=== PATIENT | female | born 2000 | race African-American/Black ===

== ENCOUNTER 2019-11-06 14:30 | Emergency (ER) | payer OTHER ==
[2019-11-06 15:08] VITALS: BP 115/73; PULSE 83; RESP 18; TEMP 98.4
[2019-11-06] MEDS ORDERED: cefTRIAXone 250 MG VIAL IM STA (15:50)
[2019-11-06] MEDS ORDERED: AZITHROMYCIN 250 MG TAB PO STA (15:50)
[2019-11-06] MEDS ORDERED: metroNIDAZOLE 500 MG TAB PO STA (15:51)
[2019-11-06 15:56] LABS: Appearance,Urine Clear (Clear); Bilirubin,Urine Negative (Negative); Blood,Urine Negative (Negative); Color,Urine Light Yellow; Glucose,Urine (UA) Negative (Negative); Ketones,Urine Negative (Negative); Leukocyte Esterase,Urine Negative (Negative); Nitrite,Urine Negative (Negative); PH, Urine 6.5 (5.0-8.0); Protein,Urine Negative (Negative); Specific Gravity,Urine 1.016 (1.001-1.035); Urobilinogen,Urine <2.0 mg/dL (<2.0)
--- NOTE | 2019-11-06 16:25 | ED ---
Female Urogenital HPI - General Chief complaint: Urogenital Stated complaint: UTI and STD TEST Time Seen by Provider: 11/06/19 15:32 Source: patient Mode of arrival: ambulatory Limitations: no limitations - History of Present Illness Initial comments: Patient is a 19-year-old female presenting to emergency Department with a chief complaint of suspected STI and vaginal discharge. Patient states she recently came back from [place] and has developed some vaginal discharge. Patient reports she has yellow/white discharge with foul odor. Patient has no history of bacterial vaginosis. Patient is also concerned for STDs. She did have unprotected sex. Denies increased urgency frequency or dysuria. Denies any night sweats fevers or chills. Denies any nausea vomiting diarrhea. Denies any back pain or abdominal pain. States there is concern for possible . - Related Data Previous Rx's Medication Instructions Recorded metroNIDAZOLE [Flagyl] 500 mg PO BID #14 tab 11/06/19 Allergies Allergy/AdvReac Type Severity Reaction Status Date / Time No Known Allergies Allergy Verified 11/06/19 15:08 Review of Systems ROS Statement: Those systems with pertinent positive or pertinent negative responses have been documented in the HPI. ROS Other: All systems not noted in ROS Statement are negative. Past Medical History Past Medical History: No Reported History History of Any Multi-Drug Resistant Organisms: None Reported Past Surgical History: No Surgical Hx Reported Past Psychological History: Bipolar Smoking Status: Current every day smoker Past Alcohol Use History: None Reported Past Drug Use History: None Reported General Exam Limitations: no limitations General appearance: alert, in no apparent distress Head exam: Present: atraumatic, normocephalic, normal inspection Eye exam: Present: normal appearance, PERRL, EOMI Pupils: Present: normal accommodation ENT exam: Present: normal exam, normal oropharynx, mucous membranes moist Neck exam: Present: normal inspection, full ROM Respiratory exam: Present: normal lung sounds bilaterally. Absent: respiratory distress, wheezes Cardiovascular Exam: Present: regular rate, normal rhythm, normal heart sounds GI/Abdominal exam: Present: soft. Absent: distended, tenderness Extremities exam: Present: normal inspection, full ROM. Absent: tenderness Back exam: Present: normal inspection, full ROM. Absent: tenderness Neurological exam: Present: alert, oriented X3 Psychiatric exam: Present: normal affect, normal mood Skin exam: Present: warm, dry, intact, normal color Course Vital Signs 11/06/19 15:04 Temperature 98.4 F Pulse Rate 83 Respiratory 18 Rate Blood Pressure 115/73 O2 Sat by Pulse 100 Oximetry Medical Decision Making - Medical Decision Making Patient is a 19-year-old female presenting to the emergency department with a chief complaint of suspected STD and vaginal discharge. Patient was offered pelvic examination, she declined. Patient would like to be treated prophylactically for any STDs. Gonorrhea and chlamydia pending. UA is unremarkable. Patient is not . Patient will be treated with Rocephin, azithromycin and Flagyl for Trichomonas. Patient also be treated for bacterial vaginosis with 7 days of Flagyl. Patient advised not to drink alcohol while taking the medication. Strict return parameters were thoroughly discussed the patient is understanding and agreeable. She was advised to follow-up with her primary care. Case discussed with physician. - Lab Data Lab Results 11/06/19 11/06/19 Range/Units 15:30 15:37 Urine Color Light Yellow Urine Appearance Clear (Clear) Urine pH 6.5 (5.0-8.0) Ur Specific [place] 1.016 (1.001-1.035) Urine Protein Negative (Negative) Urine Glucose (UA) Negative (Negative) Urine Ketones Negative (Negative) Urine Blood Negative (Negative) Urine Nitrite Negative (Negative) Urine Bilirubin Negative (Negative) Urine Urobilinogen <2.0 (<2.0) mg/dL Ur Leukocyte Esterase Negative (Negative) Urine HCG, Qual Not Detected (Not Detectd) Disposition Clinical Impression: Bacterial vaginosis, Vaginal discharge, Potential exposure to STD Disposition: HOME SELF-CARE Condition: Good Instructions (If sedation given, give patient instructions): Bacterial Vaginosis (ED) Additional Instructions: Take prescribed medication as directed. Do not drink alcohol. Return to emergency department if symptoms worsen. Prescriptions: metroNIDAZOLE [Flagyl] 500 mg PO BID #14 tab Is patient prescribed a controlled substance at d/c from ED?: No Referrals: None,Stated [Primary Care Provider] - 1-2 days Time of Disposition: 16:25
[2019-11-07 16:14] LABS: C. trachomatis,PCR Negative (Neg,Equiv); Chlamydia trachomatis Source Urine; N. gonorrhoeae,PCR Negative (Neg,Equiv); Neisseria Source Urine
== END 2019-11-06 16:31 | disposition home or self-care (01) ==
LOC: EC 14:30
DX: N76.0 Acute vaginitis (principal); F17.200 Nicotine dependence, unspecified, uncomplicated; Z20.2 Contact with and (suspected) exposure to infections with a predominantly sexual mode of transmission
CPT/HCPCS: 81003; 81025; 87491; 87591; 96372; 99283; J0696

== ENCOUNTER 2020-03-31 10:38 | Emergency (ER) | payer OTHER ==
[2020-03-31 10:44] VITALS: BP 117/72; PULSE 108; RESP 18; TEMP 99.4
--- NOTE | 2020-03-31 11:00 | ED ---
General Adult HPI - General Source: patient, RN notes reviewed Mode of arrival: ambulatory Limitations: no limitations <Stefan Metcalf - Last Filed: 03/31/20 11:46> <Shaunna Lockwood - Last Filed: 04/01/20 08:16> - General Chief complaint: Urogenital Stated complaint: STD Time Seen by Provider: 03/31/20 10:46 - History of Present Illness Initial comments: 19-year-old female without any significant past medical history presents to the emergency department for STD exposure. Patient states her partner is positive for Trichomonas. Patient unsure if he was tested for other STDs. Patient reports she has had some vaginal discharge, no abdominal pain or fevers. Patient has no other complaints at this time including shortness of breath, chest pain, abdominal pain, nausea or vomiting, headache, or visual changes. (Stefan Metcalf) - Related Data Home Medications Medication Instructions Recorded Confirmed Cholecalciferol [Vitamin D3 (25 1,000 unit PO DAILY 03/31/20 03/31/20 Mcg = 1000 Iu)] Vitamin C/Biotin [Hair, Skin and 1 tab PO DAILY 03/31/20 03/31/20 Nails] Previous Rx's Medication Instructions Recorded metroNIDAZOLE [Flagyl] 500 mg PO BID 7 Days #13 tab 03/31/20 Allergies Allergy/AdvReac Type Severity Reaction Status Date / Time No Known Allergies Allergy Verified 03/31/20 11:20 Review of Systems ROS Other: All systems not noted in ROS Statement are negative. <Stefan Metcalf - Last Filed: 03/31/20 11:46> ROS Other: All systems not noted in ROS Statement are negative. <Shaunna Lockwood - Last Filed: 04/01/20 08:16> ROS Statement: Those systems with pertinent positive or pertinent negative responses have been documented in the HPI. Past Medical History Past Medical History: No Reported History History of Any Multi-Drug Resistant Organisms: None Reported Past Surgical History: No Surgical Hx Reported Past Psychological History: Bipolar Smoking Status: Never smoker Past Alcohol Use History: None Reported Past Drug Use History: Marijuana <Stefan Metcalf - Last Filed: 03/31/20 11:46> General Exam Limitations: no limitations General appearance: alert, in no apparent distress Head exam: Present: atraumatic, normocephalic, normal inspection Eye exam: Present: normal appearance, PERRL, EOMI. Absent: scleral icterus, conjunctival injection, periorbital swelling ENT exam: Present: normal exam, mucous membranes moist Neck exam: Present: normal inspection, full ROM. Absent: tenderness, meningismus, lymphadenopathy Respiratory exam: Present: normal lung sounds bilaterally. Absent: respiratory distress, wheezes, rales, rhonchi, stridor Cardiovascular Exam: Present: regular rate, normal rhythm, normal heart sounds. Absent: systolic murmur, diastolic murmur, rubs, gallop, clicks GI/Abdominal exam: Present: soft, normal bowel sounds. Absent: distended, tenderness, guarding, rebound, rigid External exam: Present: normal external exam. Absent: erythema, swelling, lesions, lacerations, ecchymosis Speculum exam: Present: vaginal discharge (greyish discharge). Absent: normal speculum exam, erythema, cervical discharge, vaginal bleeding, foreign body, tissue By manual exam: Present: normal by manual exam. Absent: cervical motion tenderness, adnexal tenderness, adnexal mass, uterine enlargement, uterine tenderness <Stefan Metcalf P - Last Filed: 03/31/20 11:46> Course Vital Signs 03/31/20 10:42 Temperature 99.4 F Pulse Rate 108 H Respiratory 18 Rate Blood Pressure 117/72 O2 Sat by Pulse 100 Oximetry Medical Decision Making <Stefan Metcalf P - Last Filed: 03/31/20 11:46> <Shaunna Lockwood A - Last Filed: 04/01/20 08:16> - Medical Decision Making Vitals are stable. Patient slightly tachycardic likely secondary to anxiety as she is very anxious. Pelvic exam was performed and there is vaginal discharge however no cervical motion tenderness or evidence of pelvic inflammatory disease. Urinalysis is negative. HCG is not detected. Trichomonas is actually negative today. However given exposure and symptoms consistent with Trichomonas such as foul-smelling grayish discharge patient will be treated over a 7 day course which will also treat BV if that is a factor. She is also requesting empiric treatment for gonorrhea and chlamydia. Unsure patient's partner was tested for this. At this time patient will be discharged home to follow up with primary care. However she starts to develop pelvic pain fevers or any worsening symptoms she will return to the emergency room. (Stefan Metcalf) I was available for consultation in the emergency department. The history and physical exam were done by the midlevel provider. I was consulted for this patients care. I reviewed the case with the midlevel provider and based on their presentation of the patient, I agree with the assessment, medical decision making and plan of care as documented. Chart was dictated using [employer] dictation software. Attempts were made to correct any dictation errors however some typographical errors may persist. Patient was seen during state of emergency due to Covid-19. (Shaunna Lockwood) - Lab Data Lab Results 03/31/20 03/31/20 03/31/20 Range/Units 10:58 10:58 11:12 Urine Color Yellow Urine Appearance Clear (Clear) Urine pH 7.0 (5.0-8.0) Ur Specific [place] 1.014 (1.001-1.035) Urine Protein Negative (Negative) Urine Glucose (UA) Negative (Negative) Urine Ketones Negative (Negative) Urine Blood Negative (Negative) Urine Nitrite Negative (Negative) Urine Bilirubin Negative (Negative) Urine Urobilinogen <2.0 (<2.0) mg/dL Ur Leukocyte Esterase Negative (Negative) Urine HCG, Qual Not Detected (Not Detectd) Trichomonas Ag (Rapid) Negative (Negative) Disposition Is patient prescribed a controlled substance at d/c from ED?: No Time of Disposition: 11:47 <Stefan Metcalf - Last Filed: 03/31/20 11:46> <Shaunna Lockwood - Last Filed: 04/01/20 08:16> Clinical Impression: STD exposure Disposition: HOME SELF-CARE Condition: Good Instructions (If sedation given, give patient instructions): Sexually Transmitted Diseases (ED) Additional Instructions: Please take medication as directed. You were given a dose this morning and should take another dose tonight. You cannot drink alcohol on the days to take this medication. Do not have sexual intercourse until all results are back and symptoms have resolved. Follow-up with your doctor in one to 2 days. Return to the emergency room for any worsening symptoms. Prescriptions: metroNIDAZOLE [Flagyl] 500 mg PO BID 7 Days #13 tab Referrals: Urban Bello MD [REFERRING] - 1-2 days
[2020-03-31 11:11] LABS: Appearance,Urine Clear (Clear); Bilirubin,Urine Negative (Negative); Blood,Urine Negative (Negative); Color,Urine Yellow; Glucose,Urine (UA) Negative (Negative); Ketones,Urine Negative (Negative); Leukocyte Esterase,Urine Negative (Negative); Nitrite,Urine Negative (Negative); Protein,Urine Negative (Negative); Specific Gravity,Urine 1.014 (1.001-1.035); Urobilinogen,Urine <2.0 mg/dL (<2.0)
[2020-03-31] MEDS ORDERED: cefTRIAXone 250 MG VIAL IM STA (11:14)
[2020-03-31] MEDS ORDERED: metroNIDAZOLE 500 MG TAB PO STA ×2 (11:14→11:32)
[2020-03-31] MEDS ORDERED: AZITHROMYCIN 500 MG TAB PO STA (11:14)
[2020-04-01 14:08] LABS: C. trachomatis,PCR Negative (Neg,Equiv); Chlamydia trachomatis Source Vagina; N. gonorrhoeae,PCR Negative (Neg,Equiv); Neisseria Source Vagina
== END 2020-03-31 11:58 | disposition home or self-care (01) ==
LOC: EC 10:38
DX: Z20.2 Contact with and (suspected) exposure to infections with a predominantly sexual mode of transmission (principal); R00.0 Tachycardia, unspecified; N89.8 Other specified noninflammatory disorders of vagina
CPT/HCPCS: 81003; 81025; 87808; 87491; 87591; 99283; 96372; J0696

== ENCOUNTER → 2023-03-27 | Outpatient (CLI) | payer OTHER ==
[2023-03-27 14:49] VITALS: BP 145/67; PULSE 115; RESP 15; TEMP 98.7
--- NOTE | 2023-03-27 15:07 | P.PAINPG ---
Objective - Vital Signs Vital signs: Intake & Output 03/26/23 03/27/23 03/27/23 18:59 06:59 18:59 Weight 90.718 kg PQRS Measure Charge Sheet Comment: HISTORY OF PRESENT ILLNESS: A 22 yr old female w mother and fiance at side as a referral from Dr Elmore presents today w severe and chronic upper back pain secondary to post laminectomy syndrome for evaluation. Pt states pain level is provoked at 8/10 in intensity, constant, localized in the upper thoracic spine, predominantly axial, achy in character w shooting pain towards the BL ribs. Pain is provoked by movement. Pain is alleviated by PT x 4 mo which ended in Feb 2023, heat, medications (Percocet, [place], Neurontin, Lidocaine, Naproxen), topical, use of a wheelchair for ambulatory assistance, repositioning and rest. Pt states she is a paraplegic, but pt was witnessed by MA standing up from her wheelchair to adjust her clothing then sit back down. Pt states she doesn't want to follow up w her orthopedic surgeon as she complains the hardware in her thoracic spine is "loose" because she doesn't like him and has a follow up appt w another orthopedic surgeon in May 2023. She does not want to see her original orthopedic surgeon, at all, even for an opinion. Oswestry axial pain score at 38. PMH: OA, Bipolar Disorder PSH: Thoracic laminectomy w hardware placement SH: No tobacco use, No ETOH abuse, Cannabis use FH: Non contributory All: See list Meds: See list REVIEW OF ORGAN SYSTEMS: CONSTITUTIONAL: No fevers or chills. No recent weight loss. NEUROLOGICAL: + numbness and tingling along the distal extremities. No seizure disorders or headaches. MUSCULOSKELETAL: + pain PSYCHIATRIC: Denies current depression or suicidal thoughts. Physical Examinations : Constitutional : Cooperative , not in acute distress . Neurologic : Cranial nerve II to XII intact. No focal neurological deficits. Psychiatric : alert & oriented x 3. Matching mood & appropriate affect. Judgment & insight intact. Musculoskeletal : Cervical Spine Motor strength in the deltoid and biceps: Normal right side. Normal Left side Motor strength biceps and the wrist extensors: Normal right side . Normal left side Motor strength in the triceps muscle: Normal right side. Normal left side Deep tendon reflexes: Normal at the biceps. Normal at Brachioradialis. Normal at triceps Vertebral body tenderness to deep palpation over Cervical facet loading test: positive bilaterally Spurling test: positive bilaterally Neck distraction test: positive bilaterally Jaimee sign: positive bilaterally Lumbar spine Motor strength lower extremities ,thigh and legs 5/5 Right side , 5/5 Left side Deep tendon reflexes : Normal Knee Jerk. Normal Ankle Jerk Vertebral body tenderness over Parekh Test positive Lumbar facet Loading Test: positive Right / positive Left Range of motion of the lumbar spine Flexion 30 degrees, extension 10 degrees Straight Leg Raise test: Left/ Right positive at degree Brad test: positive right / positive left. Severe tenderness over the Sacroiliac joint on the Right / Left sides Gaenslen test: positive bilaterally Seated flexion test: positive bilaterally. Sacral spine : Severe tenderness over the Sacroiliac joint: right side / left side Range of motion: Flexion of the lumbar spine <60 degrees Range of motion: Extension of the lumbar spine <20 degrees Gaenslen's Test positive Brad test: positive right side / l eft side Thigh Thrust Test Sacral Thrust Test Imaging: None on file Assessment/ Plan : Thoracic post laminectomy syndrome Recommendation of ELZBIETA form to obtain records. All questions answered. I have spent greater than 30 minutes on patient care today. Dr Hammer was available by phone for the evaluation of this patient. The time was used to review the medical records including relevant urine studies and Prescription history (MAPs), review of the available imaging, evaluation and examination of the patient, coordination of care with the medical staff and if applicable referring physicians, as well as creation of the medical record PQRS Narrative: Smoking Status Current every day smoker Home Medications: Ambulatory Orders Cholecalciferol [Vitamin D3 (25 Mcg = 1000 Iu)] 1,000 unit PO DAILY 03/31/20 Vitamin C/Biotin [Hair, Skin and Nails] 1 tab PO DAILY 03/31/20 metroNIDAZOLE [Flagyl] 500 mg PO BID 7 Days #13 tab 03/31/20 Controlled Substance Measures - Controlled Substance Measures Is patient prescribed a controlled substance at discharge?: No
== END ==
LOC: PNWHC3 13:35
PROVIDERS: ATTEND Specialist
DX: M96.1 Postlaminectomy syndrome, not elsewhere classified (principal); G89.29 Other chronic pain; F17.200 Nicotine dependence, unspecified, uncomplicated; M19.90 Unspecified osteoarthritis, unspecified site; F31.9 Bipolar disorder, unspecified; Z87.828 Personal history of other (healed) physical injury and trauma
CPT/HCPCS: 99211

== ENCOUNTER → 2024-02-28 | Outpatient (CLI) | payer OTHER ==
--- NOTE | 2024-02-28 19:40 | CT ---
EXAMINATION TYPE: CT thor lumbar spine wo con CT DLP: 1894 mGycm, Automated exposure control for dose reduction was used. DATE OF EXAM: 02/28/2024 3:34 PM CLINICAL INDICATION: Female, 23 years old with history of S24.101 M54.6 M96.1 R25.2 M54.50; chronic b ack pain COMPARISON: none TECHNIQUE: Axial images of the thoracic and lumbar spine were obtained without contrast. Coronal and sagittal reformats were performed. CT Contrast: Contrast used: mL of , none. Oral contrast used: none. FINDINGS: Thoracic: Multilevel degeneration changes throughout the spine are mild. There is severe degeneration changes n ear the level of fixation hardware at T6 T7 with severe endplate sclerosis and disc space narrowing. Hardware extends from T2 to T6. Lucency around the T5 and T6 pedicle screws may be present streak art ifact limits evaluation. Series 12 image 34 and series 7 image 25 and 28. Endplate Schmorl's nodes ar e also present at T6-T7, T7-T8 and T8-T9. No evidence for significant spinal canal neural foraminal s tenosis within the thoracic spine. Laminectomy changes are also noted around T4. Lumbar: Alignment: There are 5 lumbar type vertebral bodies within normal alignment. Bone: No evidence of fracture is identified. Discs: T12-L1: No spinal canal or neural foraminal stenosis is identified. L1-L2: No spinal canal or neural foraminal stenosis is identified. L2-L3: No spinal canal or neural foraminal stenosis is identified. L3-L4: No spinal canal or neural foraminal stenosis is identified. L4-L5: No spinal canal or neural foraminal stenosis is identified. L5-S1: No spinal canal or neural foraminal stenosis is identified. Other: None IMPRESSION: 1. Surgical changes with hardware at T2-T6 with sparing of T4. There is lucency around the pedicle s crews bilaterally at T5 and definitely at T6 concerning for loosening. 2. Degeneration changes spine worse at the inferior aspect of the fixation levels worse at T6-T7, T7 -T8 and T8-T9 3. No evidence for spinal fracture. 4. No evidence for significant spinal canal stenosis. [facility], , 02/28/2024 7:38 PM
== END ==
LOC: RADCTMAIN 14:21
PROVIDERS: ATTEND Physical Medicine & Rehabilitation Pain Medicine
CPT/HCPCS: 72128; 72131

== ENCOUNTER 2024-04-12 17:24 | Inpatient (IN) | payer OTHER ==
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
[2024-04-12] MEDS: ACETAMINOPHEN TAB 500 MG TAB PO STA (19:44)
[2024-04-12] MEDS: KETOROLAC 15 MG/ML 1 ML VIAL IVP STA (19:49)
[2024-04-12] MEDS: KETOROLAC 15 MG/ML 1 ML VIAL IM STA (19:49)
[2024-04-12 20:58] LABS: ALT 14 U/L (4-34); AST 20 U/L (14-36); African American GFR (CKD) >90 (>60 ml/min/1.73 sqM); Albumin 3.7 g/dL (3.5-5.0); Alkaline Phosphatase 89 U/L (38-126); Anion Gap 8 mmol/L; Blood Urea Nitrogen 13 mg/dL (7-17); Calcium 8.5 mg/dL (8.4-10.2); Carbon Dioxide 19 mmol/L (22-30); Chloride 104 mmol/L (98-107); Glucose 112 mg/dL (74-99); Non-African American GFR(CKD) >90 (>60 ml/min/1.73 sqM); Potassium 3.6 mmol/L (3.5-5.1); Sodium 131 mmol/L (137-145); Total Bilirubin 0.5 mg/dL (0.2-1.3); Total Protein 6.9 g/dL (6.3-8.2)
[2024-04-12 21:04] LABS: Basophils % (A) 0 %; Eosinophils # (A) 0.1 k/uL (0-0.7); Eosinophils % (A) 1 %; HCT 34.9 % (34.0-46.0); HGB 11.5 gm/dL (11.4-16.0); Lymphocytes # (A) 1.2 k/uL (1.0-4.8); Lymphocytes % (A) 9 %; MCH 30.8 pg (25.0-35.0); MCHC 33.1 g/dL (31.0-37.0); MCV 93.2 fL (80.0-100.0); Mean Platelet Volume 8.5; Monocytes % (A) 8 %; Neutrophils # (A) 10.8 k/uL (1.3-7.7); Neutrophils % (A) 81 %; Platelet Count 265 k/uL (150-450); RBC 3.75 m/uL (3.80-5.40); RDW 12.6 % (11.5-15.5); WBC 13.4 k/uL (3.8-10.6)
--- NOTE | 2024-04-12 21:20 | XR ---
EXAMINATION TYPE: XR thoracic spine 3 views complete DATE OF EXAM: 04/12/2024 9:06 PM COMPARISON: None CLINICAL INDICATION: Female, 23 years old with history of previous surgery, pain, , FINDINGS: Posterior thoracic fusion hardware spanning approximately 5 levels in the upper thoracic spine. Mild to moderate degenerative disc disease mid thoracic spine below the fusion. Slight accentuated upper t horacic kyphosis. Otherwise, vertebral body heights appear to be grossly maintained and alignment is preserved. IMPRESSION: Posterior thoracic fusion hardware spanning approximately 5 levels. Accentuated upper thoracic kyphos is and mild to moderate degenerative disc disease mid thoracic spine below the fusion. No evident cuate tebral compression collapse or malalignment. [facility], , 04/12/2024 9:17 PM
[2024-04-12 21:40] LABS: C Reactive Protein 26.4 mg/dL (<1.0)
[2024-04-12] MEDS ORDERED: VANCOMYCIN IV PER PHARMACY 1 EACH MISC MISCELLANE PRN (22:25)
[2024-04-12] MEDS ORDERED: IBUPROFEN 400 MG TAB PO PRN (22:26)
[2024-04-12] MEDS ORDERED: NALOXONE 0.4 MG/ML 1 ML VIAL IV PRN (22:26)
[2024-04-12] MEDS: VANCOMYCIN 1,500 MG in SODIUM CHLORIDE 0.9% 500 ML 500 ML IVPB SCH (23:20)
[2024-04-12] MEDS: SODIUM CHLORIDE 0.9% 1,000 ML IV SCH (23:20)
[2024-04-13] MEDS: KETOROLAC 15 MG/ML 1 ML VIAL IVP PRN (06:09)
[2024-04-13 06:51] LABS: Basophils # (A) 0.1 k/uL (0-0.2); Basophils % (A) 1 %; Eosinophils # (A) 0.1 k/uL (0-0.7); Eosinophils % (A) 1 %; HCT 36.7 % (34.0-46.0); HGB 11.5 gm/dL (11.4-16.0); Hypochromasia Slight; Lymphocytes # (A) 1.6 k/uL (1.0-4.8); Lymphocytes % (A) 15 %; MCH 30.5 pg (25.0-35.0); MCHC 31.3 g/dL (31.0-37.0); MCV 97.6 fL (80.0-100.0); Monocytes # (A) 1.2 k/uL (0-1.0); Monocytes % (A) 11 %; Neutrophils # (A) 7.5 k/uL (1.3-7.7); Neutrophils % (A) 70 %; Platelet Count 257 k/uL (150-450); RBC 3.76 m/uL (3.80-5.40); RDW 12.4 % (11.5-15.5); WBC 10.7 k/uL (3.8-10.6)
[2024-04-13 06:57] LABS: ALT 14 U/L (4-34); AST 18 U/L (14-36); African American GFR (CKD) >90 (>60 ml/min/1.73 sqM); Albumin 3.6 g/dL (3.5-5.0); Alkaline Phosphatase 96 U/L (38-126); Anion Gap 10 mmol/L; Blood Urea Nitrogen 15 mg/dL (7-17); Calcium 8.7 mg/dL (8.4-10.2); Carbon Dioxide 23 mmol/L (22-30); Chloride 104 mmol/L (98-107); Glucose 145 mg/dL (74-99); Non-African American GFR(CKD) >90 (>60 ml/min/1.73 sqM); Potassium 3.6 mmol/L (3.5-5.1); Sodium 137 mmol/L (137-145); Total Bilirubin 0.2 mg/dL (0.2-1.3); Total Protein 6.7 g/dL (6.3-8.2)
[2024-04-13] MEDS: MORPHINE SULFATE 4 MG/ML SYRINGE IV PRN (11:29)
--- NOTE | 2024-04-13 12:29 | XR ---
EXAMINATION TYPE: XR chest 2V DATE OF EXAM: 04/13/2024 11:55 AM COMPARISON: None CLINICAL INDICATION: Female, 23 years old with history of fever, sepsis; [facility] TECHNIQUE: XR chest 2V Frontal and lateral views of the chest. FINDINGS: Lungs/Pleura: There is no evidence of pleural effusion, focal consolidation, or pneumothorax. Pulmonary vascularity: Unremarkable. Heart/mediastinum: Cardiomediastinal silhouette is unremarkable. Musculoskeletal: No acute osseous pathology. Postsurgical changes to the spine. Hardware appears inta ct. IMPRESSION: No acute cardiopulmonary disease/process. [facility], , 04/13/2024 12:27 PM
--- NOTE | 2024-04-13 12:30 | XR ---
EXAMINATION TYPE: XR abdomen 2V DATE OF EXAM: 04/13/2024 11:55 AM COMPARISON: None CLINICAL INDICATION: Female, 23 years old with history of constipation; distention, pain TECHNIQUE: Two views of the abdomen were obtained. FINDINGS: Large amount stool throughout the colon. The bowel gas pattern is nonspecific without dilat ed loops of small or large bowel. There is no evidence for organomegaly or pneumoperitoneum. The oss eous structures are intact. No abnormal calcifications are present. Fecal material and gas are demon strated throughout the colon and rectum. IMPRESSION: Large stool burden throughout the colon. [facility], , 04/13/2024 12:28 PM
[2024-04-13] MEDS: LACTULOSE 20 GM/30 ML CUP PO SCH (13:31)
[2024-04-13] MEDS: ONDANSETRON 4 MG/2 ML VIAL IVP PRN (13:54)
[2024-04-13 15:00] LABS: Appearance,Urine Clear (Clear); Bilirubin,Urine Negative (Negative); Blood,Urine Trace (Negative); Color,Urine Colorless; Glucose,Urine (UA) Negative (Negative); Ketones,Urine Negative (Negative); Leukocyte Esterase,Urine Negative (Negative); Nitrite,Urine Negative (Negative); Protein,Urine Negative (Negative); Specific Gravity,Urine 1.003 (1.001-1.035); Squamous Epithelial Cell,Urine 2 /hpf (0-4); Urobilinogen,Urine <2.0 mg/dL (<2.0); WBC,Urine <1 /hpf (0-5)
[2024-04-13] MEDS: NA PHOS,M-B/NA PHOS,DI-BA 133 ML ENEMA RECTAL ONE (15:59)
[2024-04-13] MEDS ORDERED: oxyCODONE-APAP 7.5-325MG 1 EACH TAB PO PRN (19:17)
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
[2024-04-13] MEDS: ENOXAPARIN 40 MG/0.4 ML SYRINGE SQ SCH (20:19)
[2024-04-13] MEDS: oxyBUTYnin chloride 5 MG TAB PO SCH (20:20)
[2024-04-13] MEDS: traZODone HCL 50 MG TAB PO SCH (20:20)
[2024-04-13] MEDS: QUEtiapine 50 MG TAB PO SCH (20:20)
[2024-04-13] MEDS: PREGABALIN 75 MG CAP PO SCH (20:20)
[2024-04-13] MEDS: MONTELUKAST 10 MG TAB PO SCH (20:20)
[2024-04-13] MEDS: DANTROLENE SODIUM 50 MG PO SCH (20:29)
[2024-04-13] MEDS: BACLOFEN 10 MG TAB PO PRN (20:54)
[2024-04-14] MEDS: VANCOMYCIN 1,500 MG in SODIUM CHLORIDE 0.9% 500 ML 500 ML IVPB SCH (01:15)
[2024-04-14] MEDS ORDERED: VANCOMYCIN TROUGH DUE 1 EACH MISC MISCELLANE ONE (06:00)
[2024-04-14 06:07] LABS: Eosinophils % (A) 1 %; HCT 35.6 % (34.0-46.0); HGB 11.5 gm/dL (11.4-16.0); Lymphocytes % (A) 10 %; MCH 31.1 pg (25.0-35.0); MCHC 32.2 g/dL (31.0-37.0); MCV 96.4 fL (80.0-100.0); Mean Platelet Volume 10.1; Monocytes % (A) 10 %; Neutrophils % (A) 77 %; Platelet Count 229 k/uL (150-450); RBC 3.69 m/uL (3.80-5.40); RDW 12.6 % (11.5-15.5); WBC 14.6 k/uL (3.8-10.6)
[2024-04-14 06:08] LABS: Basophils # (A) 0.1 k/uL (0-0.2); Basophils % (A) 0 %; Eosinophils # (A) 0.2 k/uL (0-0.7); Lymphocytes # (A) 1.5 k/uL (1.0-4.8); Monocytes # (A) 1.5 k/uL (0-1.0); Neutrophils # (A) 11.2 k/uL (1.3-7.7)
[2024-04-14] MEDS: PANTOPRAZOLE 40 MG TABLET PO SCH (06:11)
[2024-04-14 06:37] LABS: African American GFR (CKD) >90 (>60 ml/min/1.73 sqM); Anion Gap 8 mmol/L; Blood Urea Nitrogen 9 mg/dL (7-17); Calcium 8.3 mg/dL (8.4-10.2); Carbon Dioxide 17 mmol/L (22-30); Chloride 112 mmol/L (98-107); Glucose 108 mg/dL (74-99); Non-African American GFR(CKD) >90 (>60 ml/min/1.73 sqM); Sodium 137 mmol/L (137-145)
[2024-04-14 06:39] LABS: Magnesium 1.9 mg/dL (1.6-2.3); Potassium 4.6 mmol/L (3.5-5.1)
--- NOTE | 2024-04-14 09:11 | NM ---
EXAMINATION TYPE: NM pul vent and perfuse DATE OF EXAM: 04/14/2024 CLINICAL INDICATION: Female, 23 years old with history of Rule out PE; COMPARISON: NONE TECHNIQUE: Utilizing inhalation of 41 mCi Tc 99m DTPA aerosol and intravenous injection of 5.3 mCi o f Tc 99m MAA, ventilation and perfusion images are acquired post injection in multiple projections. FINDINGS: There are a few small subsegmental ventilation and perfusion matches. IMPRESSION: Low to indeterminate for pulmonary embolus. [facility], Workstation: [email or web address] 04/14/2024 9:09 AM
[2024-04-14] MEDS: ESCITALOPRAM 20 MG TAB PO SCH (09:25)
[2024-04-14] MEDS: SENNOSIDES 8.6 MG TAB PO SCH (09:25)
[2024-04-14] MEDS: LORATADINE 10 MG TAB PO SCH (09:25)
[2024-04-14] MEDS: DOCUSATE 100 MG CAP PO SCH (09:25)
[2024-04-14] MEDS ORDERED: BARIUM SULFATE 2% - 450 ML ORAL.SUSP BOTTLE PO PRN (09:30)
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
--- NOTE | 2024-04-14 11:00 | US ---
EXAMINATION TYPE: US venous doppler duplex LE DATE OF EXAM: 04/13/2024 10:21 PM Exam done portable COMPARISON: NONE CLINICAL INDICATION: Female, 23 years old with history of Rule out PE; , TECHNIQUE: The lower extremity deep venous system is examined utilizing real time linear array sonog radha with graded compression, color doppler sonography, and spectral doppler. SIDE PERFORMED: Bilateral FINDINGS: VESSELS IMAGED: Common Femoral Vein Deep Femoral Vein Greater Saphenous Vein * Femoral Vein Popliteal Vein Small Saphenous Vein * Proximal Calf Veins (* superficial vessels) The deep venous systems of both lower extremities from the common femoral remains to the proximal rufino f veins are patent and compressible with augmentable flow and with normal waveforms. IMPRESSION: No evidence of bilateral lower extremity DVT from the common femoral veins to the proximal calf veins [facility], Workstation: [email or web address] 04/14/2024 10:57 AM
[2024-04-14] MEDS: BARIUM SULFATE 2% - 450 ML ORAL.SUSP BOTTLE PO PRN (11:46)
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
[2024-04-14] MEDS: FAMOTIDINE 20 MG/2 ML VIAL IV ONE (14:48)
[2024-04-14] MEDS: diphenhydrAMINE 50 MG/ML 1 ML VIAL IVP ONE (14:56)
[2024-04-14] MEDS: methylPREDNISolone SOD SUCCI 125 MG/2 ML VIAL IV ONE (14:58)
[2024-04-14] MEDS: ACETAMINOPHEN TAB 325 MG TAB PO PRN (15:05)
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
--- NOTE | 2024-04-14 17:03 | CT ---
EXAMINATION TYPE: CT ChestAbdPelvis wo/w con DATE OF EXAM: 04/14/2024 4:34 PM COMPARISON: None available. CLINICAL INDICATION: Female, 23 years old with history of Sepsis and rule out PE.; PHH, Sepsis and ru le out PE. Technique: CT ChestAbdPelvis wo/w con; Multiple axial images were obtained. Two-dimensional coronal a nd sagittal reconstructions were obtained. Contrast used:100 mL of Isovue 300 without and with IV Contrast, (None if empty) Oral contrast used: with Oral Contrast CT DLP: 2853.9 mGycm, Automated exposure control for dose reduction was used. Findings: CHEST: LUNGS/ PLEURA: Small left pleural effusion with adjacent consolidative changes which could reflect at electasis and/or pneumonia. AIRWAY: Patent and unremarkable. HEART: Size within normal limits. MEDIASTINUM: No gross evidence of adenopathy. VASCULATURE: No evidence of thoracic aortic aneurysm or focal dissection within the limitations of mo tion artifact. No definite acute pulmonary embolism. However, evaluation of the distal segmental and some segmental pulmonary branches is significantly limited due to suboptimal timing contrast bolus an d motion artifact. MUSCULOSKELETAL: No acute osseous abnormalities. Multilevel posterior spinal fusion hardware. Thoraci c spine degenerative changes. Likely old fracture deformity of the sternomanubrial junction SOFT TISSUES/LYMPH NODES: Unremarkable. LOWER NECK: No significant findings. ABDOMEN: ABDOMEN LIVER: Unremarkable GALLBLADDER AND BILE DUCTS: Unremarkable. PANCREAS: Unremarkable. SPLEEN: Unremarkable. ADRENAL GLANDS: Unremarkable. KIDNEYS AND URETERS: No evidence of hydronephrosis or renal calculus. The ureters are unremarkable. PELVIS BLADDER: Paiz catheter within a nondistended urinary bladder with cystic and nondependent gas. REPRODUCTIVE: Unremarkable. ABDOMEN & PELVIS STOMACH AND BOWEL: Stomach and duodenum are unremarkable No evidence of bowel obstruction. PERITONEUM/RETROPERITONEUM: No evidence of pneumoperitoneum or free fluid. VASCULATURE: No evidence of aortic aneurysm. MUSCULOSKELETAL: No acute osseous abnormalities LYMPH NODES: No gross evidence for lymphadenopathy. SOFT TISSUE/ABDOMINAL WALL: Unremarkable IMPRESSION: Chest: * No evidence of acute pulmonary embolism within the limitations described above. * Small left pleural effusion with adjacent lower lobe consolidative changes which could reflect ate lectasis and/or pneumonia. CT abdomen/pelvis: * No acute abnormality identified. [facility], Workstation: [id number], 04/14/2024 5:01 PM
[2024-04-14] MEDS: DANTROLENE SODIUM 50 MG PO SCH (17:37)
[2024-04-15 09:38] LABS: African American GFR (CKD) >90 (>60 ml/min/1.73 sqM); Non-African American GFR(CKD) >90 (>60 ml/min/1.73 sqM)
[2024-04-15 09:39] LABS: African American GFR (CKD) >90 (>60 ml/min/1.73 sqM); Anion Gap 5 mmol/L; Blood Urea Nitrogen 4 mg/dL (7-17); Calcium 8.2 mg/dL (8.4-10.2); Carbon Dioxide 24 mmol/L (22-30); Chloride 110 mmol/L (98-107); Glucose 118 mg/dL (74-99); Non-African American GFR(CKD) >90 (>60 ml/min/1.73 sqM); Potassium 4.3 mmol/L (3.5-5.1); Sodium 139 mmol/L (137-145)
[2024-04-15] MEDS: MAGNESIUM CITRATE 296 ML BOTTLE PO ONE (10:56)
[2024-04-15] MEDS: PSYLLIUM HUSK 100% 6 GM PACKET PO SCH (14:58)
[2024-04-15 15:57] LABS: Basophils # (A) 0.02 X 10*3/uL (0.00-0.10); Basophils % (A) 0.1 %; Eosinophils # (A) 0.01 X 10*3/uL (0.04-0.35); Eosinophils % (A) 0.1 %; HCT 34.5 % (37.2-46.3); Lymphocytes # (A) 1.46 X 10*3/uL (0.90-5.00); Lymphocytes % (A) 10.7 %; MCH 30.5 pg (27.0-32.0); MCHC 31.9 g/dL (32.0-37.0); MCV 95.6 FL (80.0-97.0); Mean Platelet Volume 11.1 FL (9.5-12.2); Monocytes % (A) 8.8 %; NRBC Per 100 WBC 0 X 10*3/uL (0.00-0.01); Neutrophils # (A) 10.85 X 10*3/uL (1.80-7.70); Neutrophils % (A) 79.5 %; Platelet Count 257 X 10*3/uL (140-440); RBC 3.61 X 10*6/uL (4.10-5.20); RDW 12.1 % (11.5-14.5); WBC 13.65 X 10*3/uL (4.50-10.00)
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
[2024-04-15] MEDS: PEG 3350 (236 GM/BTL) + LYTES 4,000 ML BOTTLE PO ONE (21:55)
[2024-04-16 05:30] LABS: African American GFR (CKD) >90 (>60 ml/min/1.73 sqM); Non-African American GFR(CKD) >90 (>60 ml/min/1.73 sqM)
[2024-04-16 07:32] VITALS: RESP 17
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
[2024-04-16 11:03] LABS: Basophils # (A) 0.1 k/uL (0-0.2); Basophils % (A) 1 %; Eosinophils # (A) 0.1 k/uL (0-0.7); Eosinophils % (A) 1 %; HCT 34.6 % (34.0-46.0); HGB 10.9 gm/dL (11.4-16.0); Hypochromasia Slight; Lymphocytes # (A) 3.1 k/uL (1.0-4.8); Lymphocytes % (A) 26 %; MCH 30.5 pg (25.0-35.0); MCHC 31.5 g/dL (31.0-37.0); MCV 96.8 fL (80.0-100.0); Mean Platelet Volume 8.6; Monocytes # (A) 0.8 k/uL (0-1.0); Monocytes % (A) 7 %; Neutrophils # (A) 7.9 k/uL (1.3-7.7); Neutrophils % (A) 65 %; Platelet Count 266 k/uL (150-450); RBC 3.57 m/uL (3.80-5.40); RDW 12.5 % (11.5-15.5); WBC 12.1 k/uL (3.8-10.6)
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
[2024-04-16 14:07] VITALS: BP 137/84; PULSE 80; TEMP 98.3
[2024-04-16 15:43] LABS: Erythrocyte Sedimentation Rate 38 mm/Hr (0-20)
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
== END 2024-04-16 17:37 | disposition short-term general hospital (02) | DRG 349 ==
LOC: EC 17:24 → 6NMEDSUR 23:03 → OBSVTOIN 23:04 → 6NMEDSUR 04-13 16:19
PROVIDERS: ADMIT Hospitalist; ATTEND Hospitalist
DX: T84.63XA Infection and inflammatory reaction due to internal fixation device of spine, initial encounter (principal); A41.9 Sepsis, unspecified organism; E86.0 Dehydration; E86.1 Hypovolemia; E87.1 Hypo-osmolality and hyponatremia; F31.9 Bipolar disorder, unspecified; G82.50 Quadriplegia, unspecified; K59.00 Constipation, unspecified; M51.04 Intervertebral disc disorders with myelopathy, thoracic region; T84.216A Breakdown (mechanical) of internal fixation device of vertebrae, initial encounter; N31.9 Neuromuscular dysfunction of bladder, unspecified; J45.909 Unspecified asthma, uncomplicated; M40.204 Unspecified kyphosis, thoracic region; Z91.041 Radiographic dye allergy status; Z91.013 Allergy to seafood
CPT/HCPCS: 36415; 71046; 71270; 72072; 74019; 74178; 78582; 80048; 80053; 80202; 81001; 82565; 83605; 83735; 84145; 85025; 85379; 85652; 86140; 87040; 87636; 93970; 96361; 96365; 96366; 96372; 96374; 96375; 99285

== ENCOUNTER 2024-06-17 13:50 | Day surgery (SDC) | payer OTHER ==
[2024-06-17] MEDS ORDERED: HYDROmorphone 0.5 MG/0.5 ML SYRINGE IVP PRN (14:43)
[2024-06-17] MEDS: LACTATED RINGERS 1,000 ML IV SCH (14:57)
[2024-06-17] MEDS: IV FLUID CONTINUATION 1,000 ML IV ONE (14:57)
[2024-06-17 15:10] LABS: Basophils # (A) 0.1 k/uL (0-0.2); Basophils % (A) 1 %; Eosinophils # (A) 0.2 k/uL (0-0.7); Eosinophils % (A) 2 %; HCT 42.2 % (34.0-46.0); HGB 13.5 gm/dL (11.4-16.0); Lymphocytes # (A) 2.7 k/uL (1.0-4.8); Lymphocytes % (A) 27 %; MCH 30.2 pg (25.0-35.0); MCHC 31.9 g/dL (31.0-37.0); MCV 94.7 fL (80.0-100.0); Mean Platelet Volume 8.2; Monocytes # (A) 0.6 k/uL (0-1.0); Monocytes % (A) 6 %; Neutrophils # (A) 6.3 k/uL (1.3-7.7); Neutrophils % (A) 63 %; Platelet Count 281 k/uL (150-450); RBC 4.46 m/uL (3.80-5.40); RDW 13.8 % (11.5-15.5)
[2024-06-17] MEDS: ONDANSETRON 4 MG/2 ML VIAL IVP ONE (15:20)
[2024-06-17 15:24] LABS: HCG,Qualitative Serum Not Detected
[2024-06-17 15:25] LABS: ALT 17 U/L (4-34); African American GFR (CKD) >90 (>60 ml/min/1.73 sqM); Anion Gap 11 mmol/L; Blood Urea Nitrogen 13 mg/dL (7-17); Calcium 9.1 mg/dL (8.4-10.2); Carbon Dioxide 24 mmol/L (22-30); Chloride 103 mmol/L (98-107); Glucose 83 mg/dL (74-99); Non-African American GFR(CKD) >90 (>60 ml/min/1.73 sqM); Sodium 138 mmol/L (137-145); Total Bilirubin 0.6 mg/dL (0.2-1.3)
[2024-06-17] MEDS: DEXAMETHASONE SOD PHOSPHATE 4 MG/ML 1 ML VIAL IV ONE (15:27)
[2024-06-17 15:38] LABS: AST 34 U/L (14-36); Albumin 4.4 g/dL (3.5-5.0); Potassium 5.3 mmol/L (3.5-5.1); Total Protein 7.9 g/dL (6.3-8.2)
[2024-06-17 15:39] LABS: Alkaline Phosphatase 81 U/L (38-126)
[2024-06-17] MEDS: LIDOCAINE 2%-EPI 1:100,000 20 ML VIAL SQ ONE ×3 (16:14→16:37)
[2024-06-17] MEDS ORDERED: PROPOFOL 10 MG/ML 20 ML VIAL IV ONE (16:17)
[2024-06-17] MEDS ORDERED: LIDOCAINE 1% INJ 10MG/ML (20 ML MDV) ONE (16:17)
[2024-06-17] MEDS ORDERED: MIDAZOLAM 2 MG/2 ML VIAL ONE (16:17)
[2024-06-17] MEDS ORDERED: fentaNYL (PF) 50 MCG/ML 2 ML AMP ONE (16:17)
--- NOTE | 2024-06-17 17:17 | P.OP ---
Date of Procedure: 06/17/24 Preoperative Diagnosis: Dental decay teeth numbers 1,2,32 Jaw pain of right Impacted tooth #32 Paraplegic unable to transfer without Paola lift. Postoperative Diagnosis: Same Procedure(s) Performed: Surgical extraction of tooth #1 tooth #2 Impacted tooth surgical extraction of tooth #32 Implants: None Anesthesia: JC Surgeon: Leonard Benz Estimated Blood Loss (ml): 5 IV fluids (ml): 100 Urine output (ml): 0 Pathology: none sent Condition: stable Disposition: PACU Indications for Procedure: Patient had tooth pain unable to perform under local anesthesia due to pain and previous dental trauma. Patient was unable to perform in the office with IV sedation due to inability to self transfer and requiring a Paola lift to get in and out of bed to chair wheelchair. Patient's been having this pain for approximately 1 year is off-and-on and is improved slightly with antibiotics but then returns. Patient was seen in the preoperative holding area originally the plan was to remove only tooth numbers 1 and 2 but she has now been having pain for several months of tooth #32. Again reiterated the fact that tooth #32 and tooth #17 carry increased risk for nerve damage in the lower lip chin and tongue. For this reason we only are extracting symptomatic tooth #32 and leaving tooth #[address] due to the fact that it is not can okay with the mouth at this time. Consent reviewed with the patient including but not limited to bleeding pain infection swelling need for additional procedures and numbness in her lower lip chin and tongue that could be permanent. The patient is no longer taking Xarelto but still plan to place Gelfoam and sutures for bleeding purposes. Patient agreed to consent for right sided teeth numbers 1 2 and 32 and any additional teeth Patient taken to the operating room and prepped and draped in usual fashion for clean contaminated oral surgery. Patient had a bite block and throat pack placed. Patient then had 8 cc of 2% lidocaine administered in a block in i nfiltrative fashion around tooth numbers 1 2 and 32. Patient had full-thickness buccal flap to approach the bone over tooth #32 at this time the tooth was sectioned and removed and parts. No evidence of nerve damage was seen and the tooth was not grooved or slotted for the nerve. Tooth numbers 1 and 2 were approached with a full-thickness buccal flap bone was removed and teeth numbers 1 and 2 were sectioned and removed. Gelfoam was placed into all the sockets and closure obtained with 4-0 plain gut suture. The sockets were packed with gauze and hemostasis was achieved. Discharge medications include tramadol 50 mg dispense 15 tablets take 1 tablet p.o. every 4 hours as needed pain Amoxicillin 875 mg dispense 20 take 1 tab p.o. every 12 hours Peridex mouthwash dispense 473 mL take 10 mL 4 times a day rinse and spit Plan - Discharge Summary New Discharge Prescriptions: No Action Pregabalin [Lyrica] 150 mg PO BID Dantrolene Sodium [Dantrium] 100 mg PO QID Montelukast [Singulair] 10 mg PO HS Escitalopram [Lexapro] 20 mg PO DAILY Pantoprazole [Protonix] 40 mg PO DAILY PRN PRN Reason: gerd oxyBUTYnin chloride [Ditropan] 5 mg PO QID QUEtiapine [SEROquel] 50 mg PO HS Cetirizine HCl 10 mg PO DAILY Baclofen [Lioresal] 20 mg PO QID PRN PRN Reason: Muscle Spasm oxyCODONE-APAP 10-325MG [Percocet 10-325 mg] 10 - 325 mg PO Q8HR PRN PRN Reason: Moderate Pain (Scale 4 To 6) Discharge Medication List Baclofen [Lioresal] 20 mg PO QID PRN 04/13/24 [History] Cetirizine HCl 10 mg PO DAILY 04/13/24 [History] Dantrolene Sodium [Dantrium] 100 mg PO QID 04/13/24 [History] Escitalopram [Lexapro] 20 mg PO DAILY 04/13/24 [History] Montelukast [Singulair] 10 mg PO HS 04/13/24 [History] Pantoprazole [Protonix] 40 mg PO DAILY PRN 04/13/24 [History] Pregabalin [Lyrica] 150 mg PO BID 04/13/24 [History] QUEtiapine [SEROquel] 50 mg PO HS 04/13/24 [History] oxyBUTYnin chloride [Ditropan] 5 mg PO QID 04/13/24 [History] oxyCODONE-APAP 10-325MG [Percocet 10-325 mg] 10 - 325 mg PO Q8HR PRN 06/17/24 [History]
[2024-06-17 17:20] VITALS: TEMP 97.5
[2024-06-17 18:18] VITALS: RESP 16
[2024-06-17 18:31] VITALS: BP 116/65; PULSE 70
== END 2024-06-17 18:44 ==
LOC: OR 13:50
PROVIDERS: ATTEND Dentist Oral and Maxillofacial Surgery
DX: K02.9 Dental caries, unspecified (principal); K01.1 Impacted teeth; G82.20 Paraplegia, unspecified; E07.9 Disorder of thyroid, unspecified; F31.9 Bipolar disorder, unspecified; Z86.718 Personal history of other venous thrombosis and embolism; Z91.013 Allergy to seafood; Z88.8 Allergy status to other drugs, medicaments and biological substances; Z79.899 Other long term (current) drug therapy; Z98.890 Other specified postprocedural states
CPT/HCPCS: 80053; 85025; 84703; 41899; J2250; J1100; J2405; J2003; J3010; J2704